=== PATIENT | male | born 1965 | race Caucasian/White ===

== ENCOUNTER 2019-02-28 09:12 | Inpatient (IN) | payer BC ==
[2019-02-28 09:47] LABS: Absolute Lymphocytes (CBC) 1.8 K/uL (0.7-4.9); Absolute Monocytes 0.6 K/uL (0.1-1.3); Absolute Neutrophil 3.7 K/uL (1.8-8.0); Basophils % 0.8 % (0-1.3); Eosinophils % 3.2 % (0-4.4); Hematocrit 49.4 % (39.6-49.0); Lymphocytes % 29.1 % (15.3-44.8); MPV 9.5 fL (7.6-11.3); Monocytes % 8.9 % (3.3-12.3)
[2019-02-28 09:51] LABS: Protime INR 0.96
[2019-02-28 10:10] LABS: ALT/SGPT 35 U/L (12-78); AST/SGOT 30 U/L (15-37); Albumin 4.3 g/dL (3.4-5.0); Alkaline Phosphatase 77 U/L (45-117); BUN Blood Urea Nitrogen 15 mg/dL (7-18); Bicarbonate 25 mmol/L (21-32); Bilirubin Direct < 0.1 mg/dL (0-0.2); Bilirubin Total 0.7 mg/dL (0.2-1.0); Glucose Level 114 mg/dL (74-106); Lipase 114 U/L (73-393); NT PRO-BNP 191 pg/mL (<125); Potassium 3.8 mmol/L (3.5-5.1); Protein, Total 8.2 g/dL (6.4-8.2); Sodium Level 144 mmol/L (136-145)
[2019-02-28] MEDS ORDERED: FOLIC ACID 5 MG/ML VIAL ONE (10:11)
--- NOTE | 2019-02-28 10:11 | RAD REPORT ---
EXAM DESCRIPTION: CT - Head Brain Wo Cont - 02/28/2019 9:51 am CLINICAL HISTORY: Transient alteration of awareness COMPARISON: None. TECHNIQUE: Axial 5 mm thick images of the head were obtained without IV contrast. All CT scans are performed using dose optimization technique as appropriate and may include automated exposure control or mA/KV adjustment according to patient size. FINDINGS: No intracranial hemorrhage, mass, edema or shift of mid-line structures. No acute infarcti on changes seen. No abnormal extra-axial fluid collections. Ventricles are normal. Mastoid air cells and visualized portions of the paranasal sinuses are clear. No acute bony findings. IMPRESSION: Negative non-contrast CT head examination.
[2019-02-28] MEDS ORDERED: NA CHLORIDE 0.9% 1,000 ML ONE (10:12)
--- NOTE | 2019-02-28 10:12 | RAD REPORT ---
EXAM DESCRIPTION: RAD - Chest Single View - 02/28/2019 9:47 am CLINICAL HISTORY: Chest pain COMPARISON: February 2017 TECHNIQUE: AP portable chest image was obtained 0936 hour . FINDINGS: Lungs are clear. Cardiac silhouette is enlarged and increased from the comparison. No vasc ular engorgement or other findings of acute failure/ volume overload. No measurable pleural effusion and no pneumothorax. No acute bony abnormality seen. No acute aortic findings suspected. IMPRESSION: No acute lung parenchymal process. Cardiomegaly increased from comparison. No acute failure or volume overload findings.
--- NOTE | 2019-02-28 11:07 | ER ---
Nurse's Notes [facility] Name: Balbina López Age: 53 yrs Sex: Male : 1965 Arrival Date: 02/28/2019 Time: 09:13 Bed 6 Private MD: Diagnosis: Angina pectoris;Chest pain, unspecified;Essential (primary) hypertension Presentation: 02/28 09:15 Presenting complaint: Patient states: I dont remember events from this morning, I feel sg like i just woke up and I didn't recognize where I am states: He started complaining of chest pain this morning, said it was getting worse so I brought him here to get checked out. Transition of care: patient was not received from another setting of care. Onset of symptoms was February 28, 2019. Risk Assessment: Do you want to hurt yourself or someone else? Patient reports no desire to harm self or others. Initial Sepsis Screen: Does the patient meet any 2 criteria? No. Patient's initial sepsis screen is negative. Does the patient have a suspected source of infection? No. Patient's initial sepsis screen is negative. Note pt asking what happened this morning and reports he doesn't remember leaving the house or remember being driven to the ER, notified. Care prior to arrival: None. 09:15 Method Of Arrival: Wheelchair sg 09:15 Acuity: CHIKA 2 sg Historical: - Allergies: : No Known Allergies; sg - Home Meds: :29 atenolol 100 mg Oral tab 1 tab once daily [Active]; Cialis 20 mg Oral tab 1 tab once sg daily [Active]; - PMHx: 09:29 Hyperlipidemia; Hypertension; sg - PSHx: 10:22 Cholecystectomy; sg - Immunization history:: Adult Immunizations up to date. - Social history:: Smoking status: Patient/guardian denies using tobacco. - Ebola Screening: : Patient negative for fever greater than or equal to 101.5 degrees Fahrenheit, and additional compatible Ebola Virus Disease symptoms Patient denies exposure to infectious person Patient denies travel to an Ebola-affected area in the 21 days before illness onset No symptoms or risks identified at this time. - Family history:: not pertinent. Screenin:29 Abuse screen: Denies threats or abuse. Denies injuries from another. Nutritional sg screening: No deficits noted. Tuberculosis screening: No symptoms or risk factors identified. Never had TB. VAN Screening: Arm Drift: Patient shows no arm weakness. Patient is VAN negative. Visual Disturbance: No visual disturbance noted. Aphasia: No aphasia noted. Neglect: No neglect noted. Fall Risk None identified. Assessment: 09:25 General: Appears in no apparent distress. comfortable, well groomed, well developed, sg well nourished, Behavior is calm, cooperative, appropriate for age. Pain: Complains of pain in chest Pain does not radiate. Quality of pain is described as aching, pressure. Neuro: Level of Consciousness is awake, obeys commands, confused, Oriented to person, time, Bale Tie Machine Operator are equal bilaterally Moves all extremities. Full function Gait is steady, Speech is normal, Facial symmetry appears normal. Cardiovascular: Capillary refill is brisk in bilateral fingers Patient's skin is warm and dry. Chest pain is described as mild, quality is clutching, pressure, is located in anterior chest wall. Respiratory: Airway is patent Respiratory effort is even, unlabored, Respiratory pattern is regular, symmetrical. GI: Abdomen is round non-distended, Reports normal bowel habits, tolerance of fluids, tolerance of food. : No signs and/or symptoms were reported regarding the genitourinary system. EENT: No signs and/or symptoms were reported regarding the EENT system. Derm: Skin is pink, warm \T\ dry. Musculoskeletal: No signs and/or symptoms reported regarding the musculoskeletal system. 09:36 Reassessment: at bedside at this time. sg 11:13 Reassessment: Patient appears in no apparent distress at this time. at bedside sg evaluating pt at this time. Vital Signs: 09:30 BP 192 / 112; Pulse 66; Resp 12; Temp 98.2; Pulse Ox 98% on R/A; Pain 6/10; sg 10:35 BP 168 / 100; Pulse 64 MON; Resp 15; Pulse Ox 98% on R/A; sg 11:16 Weight 93.44 kg (M); sg 11:55 BP 168 / 113; Pulse 56; Resp 19; Pulse Ox 98% on R/A; sg 12:25 BP 188 / 111; Pulse 59 MON; Resp 17; Pulse Ox 99% on R/A; sg 13:20 BP 165 / 112; Pulse 57; Resp 19; Pulse Ox 98% on R/A; sg 13:32 BP 147 / 92; Pulse 62; Resp 17; Temp 98.2; Pulse Ox 100% on R/A; sg Vitals: 09:35 Cardiac Rhythm Assessment Sinus flex. sg NIH Stroke Scale Scores: 09:29 NIHSS Score: 0 ED Course: 09:13 Patient arrived in ED. as 09:14 Benjamin Tineo MD is Attending Physician. thais 09:20 EKG done, by ED staff, reviewed by Benjamin Tineo MD. sg 09:25 Alfredo Lundberg, RN is Primary Nurse. sg 09:26 Inserted saline lock: 20 gauge in right antecubital area, using aseptic technique. 3 Blood collected. 09:28 Triage completed. sg 09:28 Arm band placed on. sg 09:32 Patient maintains SpO2 saturation greater than 95% on room air. sg 09:34 Initial lab(s) drawn, by me, sent to lab. dh3 09:[address] kw1 09:47 XRAY Chest (1 view) In Process Unspecified. EDMS 09:50 CT completed. Patient tolerated procedure well. Patient moved back from CT. bq 09:52 CT Head Brain wo Cont In Process Unspecified. EDMS 11:06 Haroldo García MD is Hospitalizing Provider. thais 13:30 No provider procedures requiring assistance completed. Repeat lab(s) drawn. by me. sg 13:33 Patient has correct armband on for positive identification. Bed in low position. Call sg light in reach. Side rails up X2. grommet machine operator on. Pulse ox on. NIBP on. Warm blanket given. Head of bed elevated. 13:34 Repeat lab(s) drawn. by me, sent to lab. dh3 13:35 Patient admitted, IV remains in place. intact, No redness/swelling at site. Pressure sg dressing applied. Administered Medications: 10:00 Drug: foLIC Acid 1 mg Route: IVPB; Site: right antecubital; sg 10:00 Drug: NS 0.9% 1000 ml Route: IV; Rate: 1 bolus; Site: right antecubital; 13:00 Follow up: Response: No adverse reaction; IV Status: Completed infusion; IV Intake: sg 1000ml 11:39 Drug: Aspirin Chewable Tablet 324 mg Route: PO; sg 13:00 Follow up: Response: No adverse reaction sg 11:39 Not Given (Physician Discretion): Lopressor 25 mg PO once sg 11:39 Drug: Lovenox 1 mg/kg Route: Sub-Q; Site: right lower abdomen; sg 13:00 Follow up: Response: No adverse reaction sg 11:39 Drug: PlaVIX 300 mg Route: PO; sg 19:28 Follow up: Response: No adverse reaction sg 11:39 Drug: Pepcid 20 mg Route: IVP; Site: right antecubital; sg 13:00 Follow up: Response: No adverse reaction sg 11:40 Drug: Lisinopril 10 mg Route: PO; sg 13:00 Follow up: Response: No adverse reaction; Blood pressure is lowered sg Point of Care Testing: Blood Glucose: 09:33 Blood Glucose: 111 mg/dL; sg Ranges: Intake: 13:00 IV: 1000ml; Total: 1000ml. sg Outcome: 11:06 Decision to Hospitalize by Provider. thais 14:06 Admitted to Tele accompanied by tech, via wheelchair, room 211, with oxygen, with sg chart, Report called to Emilee HOOVER 14:06 Condition: stable 14:06 Instructed on the need for admit, safety practices, Demonstrated understanding of instructions. 14:09 Patient left the ED. sg NIH Stroke Scale - NIH Stroke Score Date: 02/28/2019 Time: 09:29 Total Score = 0 1a. Level of Consciousness (LOC) - 0(Alert) 1b. Level of Consciousness (LOC) (Year \T\ Age) - 0(Both) 1c. LOC Commands (Open \T\ Closes Eyes/Industrial Relations Counselor) - 0(Both) 2. Best Gaze (Lateral Gaze Paresis) - 0(Normal) 3. Visual Field Loss - 0(No visual loss) 4. Facial Palsy - 0(Normal) 5a. Left Arm: Motor (10-second hold) - 0(No drift) 5b. Right Arm: Motor (10-second hold) - 0(No drift) 6a. Left Leg: Motor (5-second hold - always test supine) - 0(No drift) 6b. Right Leg: Motor (5-second hold - always test supine) - 0(No drift) 7. Limb Ataxia (finger/nose \T\ heel/rodríguez - test with eyes open) - 0(Absent) 8. Sensory Loss (pinprick arms/legs/face) - 0(Normal) 9. Best Language: Aphasia (description/naming/reading) - 0(No aphasia) 10. Dysarthria (speech clarity - read or repeat words) - 0(Normal) 11. Extinction and Inattention (visual/tactile/auditory/spatial/personal) - 0(No abnormality) Initials: Signatures: Dispatcher [employer] Alfredo Valera RN RN Benjamin Tineo MD MD cha Quilty, Betty bq Martinez, Amelia as Herrera, De[facility] Roseanne Carranza 1 Corrections: (The following items were deleted from the chart) 09:34 09:30 BP 192 / 112; Pulse 66bpm; Resp 12bpm; Pulse Ox 98% RA; Temp 97.2F; 97.52 sg kg; Pain 6/10; sg 10:22 09:29 PSHx: None; sg sg 13:33 09:30 BP 192 / 112; Pulse 66bpm; Resp 12bpm; Pulse Ox 98% RA; Temp 98.2F; 97.52 sg kg; Pain 6/10; sg
--- NOTE | 2019-02-28 11:07 | EDPHYS ---
Physician Documentation [facility] Name: Balbina López Age: 53 yrs Sex: Male : 1965 Arrival Date: 02/28/2019 Time: 09:13 Bed 6 Private MD: KATHLEEN Physician Benjamin Tineo HPI: 02/28 09:39 This 53 yrs old Male presents to ER via Wheelchair with complaints of Chest thais Pain, Confusion. 09:39 The patient or guardian reports chest pain that is located primarily in the anterior [facility] chest wall. Onset: this morning. The pain does not radiate. Associated signs and symptoms: The patient has no apparent associated signs or symptoms. The chest pain is described as a pressure. Modifying factors: The symptoms are alleviated by nothing. the symptoms are aggravated by nothing. Severity of pain: At its worst the pain was mild in the emergency department the pain is unchanged. The patient has not experienced similar symptoms in the past. Historical: - Allergies: 09:29 No Known Allergies; sg - Home Meds: 09:29 atenolol 100 mg Oral tab 1 tab once daily [Active]; Cialis 20 mg Oral tab 1 tab once sg daily [Active]; - PMHx: 09:29 Hyperlipidemia; Hypertension; sg - PSHx: 10:22 Cholecystectomy; sg - Immunization history:: Adult Immunizations up to date. - Social history:: Smoking status: Patient/guardian denies using tobacco. - Ebola Screening: : Patient negative for fever greater than or equal to 101.5 degrees Fahrenheit, and additional compatible Ebola Virus Disease symptoms Patient denies exposure to infectious person Patient denies travel to an Ebola-affected area in the 21 days before illness onset No symptoms or risks identified at this time. - Family history:: not pertinent. ROS: 09:39 Constitutional: Negative for fever, chills, and weight loss, Eyes: Negative for injury, thais pain, redness, and discharge, ENT: Negative for injury, pain, and discharge, Neck: Negative for injury, pain, and swelling, Respiratory: Negative for shortness of breath, cough, wheezing, and pleuritic chest pain, Abdomen/GI: Negative for abdominal pain, nausea, vomiting, diarrhea, and constipation, Back: Negative for injury and pain, : Negative for injury, bleeding, discharge, and swelling, MS/Extremity: Negative for injury and deformity, Skin: Negative for injury, rash, and discoloration, Neuro: Negative for headache, weakness, numbness, tingling, and seizure, Psych: Negative for depression, anxiety, suicide ideation, homicidal ideation, and hallucinations, Allergy/Immunology: Negative for hives, rash, and allergies, Endocrine: Negative for neck swelling, polydipsia, polyuria, polyphagia, and marked weight changes, Hematologic/Lymphatic: Negative for swollen nodes, abnormal bleeding, and unusual bruising. 09:39 Cardiovascular: Positive for chest pain. Exam: 09:39 Constitutional: This is a well developed, well nourished patient who is awake, alert, thais and in no acute distress. Head/Face: Normocephalic, atraumatic. Eyes: Pupils equal round and reactive to light, extra-ocular motions intact. Lids and lashes normal. Conjunctiva and sclera are non-icteric and not injected. Cornea within normal limits. Periorbital areas with no swelling, redness, or edema. ENT: Nares patent. No nasal discharge, no septal abnormalities noted. Tympanic membranes are normal and external auditory canals are clear. Oropharynx with no redness, swelling, or masses, exudates, or evidence of obstruction, uvula midline. Mucous membranes moist. Neck: Trachea midline, no thyromegaly or masses palpated, and no cervical lymphadenopathy. Supple, full range of motion without nuchal rigidity, or vertebral point tenderness. No Meningismus. Chest/axilla: Normal chest wall appearance and motion. Nontender with no deformity. No lesions are appreciated. Cardiovascular: Regular rate and rhythm with a normal S1 and S2. No gallops, murmurs, or rubs. Normal PMI, no JVD. No pulse deficits. Respiratory: Lungs have equal breath sounds bilaterally, clear to auscultation and percussion. No rales, rhonchi or wheezes noted. No increased work of breathing, no retractions or nasal flaring. Abdomen/GI: Soft, non-tender, with normal bowel sounds. No distension or tympany. No guarding or rebound. No evidence of tenderness throughout. Back: No spinal tenderness. No costovertebral tenderness. Full range of motion. Male : Normal genitalia with no discharge or lesions. Skin: Warm, dry with normal turgor. Normal color with no rashes, no lesions, and no evidence of cellulitis. MS/ Extremity: Pulses equal, no cyanosis. Neurovascular intact. Full, normal range of motion. Neuro: Awake and alert, GCS 15, oriented to person, place, time, and situation. Cranial nerves II-XII grossly intact. Motor strength 5/5 in all extremities. Sensory grossly intact. Cerebellar exam normal. Normal gait. Psych: Awake, alert, with orientation to person, place and time. Behavior, mood, and affect are within normal limits. 09:39 Neuro: Orientation: to person, place, time, Not oriented to situation. Vital Signs: 09:30 BP 192 / 112; Pulse 66; Resp 12; Temp 98.2; Pulse Ox 98% on R/A; Pain 6/10; sg 10:35 BP 168 / 100; Pulse 64 MON; Resp 15; Pulse Ox 98% on R/A; sg 11:16 Weight 93.44 kg (M); sg 11:55 BP 168 / 113; Pulse 56; Resp 19; Pulse Ox 98% on R/A; sg 12:25 BP 188 / 111; Pulse 59 MON; Resp 17; Pulse Ox 99% on R/A; sg 13:20 BP 165 / 112; Pulse 57; Resp 19; Pulse Ox 98% on R/A; sg 13:32 BP 147 / 92; Pulse 62; Resp 17; Temp 98.2; Pulse Ox 100% on R/A; sg NIH Stroke Scale Scores: 09:29 NIHSS Score: 0 sg MDM: 09:14 Patient medically screened. [facility] 09:39 Data reviewed: vital signs, nurses notes, lab test result(s), EKG, radiologic studies, [facility] CT scan, plain films. 02/28 09:18 Order name: Basic Metabolic Panel; Complete Time: 10:50 [facility] 02/28 09:18 Order name: CBC with Diff; Complete Time: 10:10 [facility] 02/28 09:18 Order name: LFT's; Complete Time: 10:50 [facility] 02/28 09:18 Order name: Magnesium; Complete Time: 10:50 [facility] 02/28 09:18 Order name: NT PRO-BNP; Complete Time: 10:50 [facility] 02/28 09:18 Order name: PT-INR; Complete Time: 10:10 [facility] 02/28 09:18 Order name: Troponin (emerg Dept Use Only); Complete Time: 10:50 [facility] 02/28 09:18 Order name: XRAY Chest (1 view); Complete Time: 10:50 [facility] 02/28 09:18 Order name: Lipase; Complete Time: 10:50 [facility] 02/28 09:34 Order name: Glucose, Ancillary Testing; Complete Time: 10:10 [facility] 02/28 11:07 Order name: Lipid Profile [facility] 02/28 11:20 Order name: Urine Dipstick--Ancillary (enter results) ut 02/28 13:31 Order name: Troponin I 02/28 13:57 Order name: Urine Dipstick-Ancillary [facility] 02/28 09:18 Order name: EKG; Complete Time: 09:19 [facility] 02/28 09:18 Order name: Cardiac monitoring; Complete Time: 09:31 [facility] 02/28 09:18 Order name: EKG - Nurse/Tech; Complete Time: 09:31 [facility] 02/28 09:18 Order name: IV Saline Lock; Complete Time: 09:31 [facility] 02/28 09:18 Order name: Labs collected and sent; Complete Time: 09:33 [facility] 02/28 09:39 Order name: CT Head Brain wo Cont; Complete Time: 10:50 [facility] 02/28 11:14 Order name: CONS Physician Consult [facility] 02/28 12:45 Order name: Diet Heart Healthy; Complete Time: 12:45 [facility] 02/28 09:18 Order name: O2 Per Protocol; Complete Time: 09:33 [facility] 02/28 09:18 Order name: O2 Sat Monitoring; Complete Time: 09:33 [facility] Administered Medications: 10:00 Drug: foLIC Acid 1 mg Route: IVPB; Site: right antecubital; sg 10:00 Drug: NS 0.9% 1000 ml Route: IV; Rate: 1 bolus; Site: right antecubital; sg 13:00 Follow up: Response: No adverse reaction; IV Status: Completed infusion; IV Intake: sg 1000ml 11:39 Drug: Aspirin Chewable Tablet 324 mg Route: PO; sg 13:00 Follow up: Response: No adverse reaction sg 11:39 Not Given (Physician Discretion): Lopressor 25 mg PO once sg 11:39 Drug: Lovenox 1 mg/kg Route: Sub-Q; Site: right lower abdomen; sg 13:00 Follow up: Response: No adverse reaction sg 11:39 Drug: PlaVIX 300 mg Route: PO; sg 19:28 Follow up: Response: No adverse reaction sg 11:39 Drug: Pepcid 20 mg Route: IVP; Site: right antecubital; sg 13:00 Follow up: Response: No adverse reaction sg 11:40 Drug: Lisinopril 10 mg Route: PO; sg 13:00 Follow up: Response: No adverse reaction; Blood pressure is lowered sg Point of Care Testing: Blood Glucose: 09:33 Blood Glucose: 111 mg/dL; sg Ranges: Critical Glucose Levels:Adult <50 mg/dl or >400 mg/dl <40 mg/dl or >180 mg/dl Disposition: 02/28/19 11:06 Hospitalization ordered by Haroldo García for Inpatient Admission. Preliminary diagnosis are Angina pectoris, Chest pain, unspecified, Essential (primary) hypertension. - Bed requested for Telemetry/MedSurg (Inpatient). - Status is Inpatient Admission. sg - Condition is Fair. - Problem is new. - Symptoms have improved. UTI on Admission? No NIH Stroke Scale - NIH Stroke Score Date: 02/28/2019 Time: 09:29 Total Score = 0 1a. Level of Consciousness (LOC) - 0(Alert) 1b. Level of Consciousness (LOC) (Year \T\ Age) - 0(Both) 1c. LOC Commands (Open \T\ Closes Eyes/Block Breaker Operator) - 0(Both) 2. Best Gaze (Lateral Gaze Paresis) - 0(Normal) 3. Visual Field Loss - 0(No visual loss) 4. Facial Palsy - 0(Normal) 5a. Left Arm: Motor (10-second hold) - 0(No drift) 5b. Right Arm: Motor (10-second hold) - 0(No drift) 6a. Left Leg: Motor (5-second hold - always test supine) - 0(No drift) 6b. Right Leg: Motor (5-second hold - always test supine) - 0(No drift) 7. Limb Ataxia (finger/nose \T\ heel/rodríguez - test with eyes open) - 0(Absent) 8. Sensory Loss (pinprick arms/legs/face) - 0(Normal) 9. Best Language: Aphasia (description/naming/reading) - 0(No aphasia) 10. Dysarthria (speech clarity - read or repeat words) - 0(Normal) 11. Extinction and Inattention (visual/tactile/auditory/spatial/personal) - 0(No abnormality) Initials: sg Signatures: Dispatcher [employer] EDAlfredo De León, RN RN Benjamin Musa MD MD cha Fitzgerald, Diane RN RN df Corrections: (The following items were deleted from the chart) 10:22 09:29 PSHx: None; sg sg 13:27 11:06 Hospitalization Ordered by Haroldo García MD for Inpatient Admission. df Preliminary diagnosis is Angina pectoris; Chest pain, unspecified; Essential (primary) hypertension. Bed requested for Telemetry/MedSurg (Inpatient). Status is Inpatient Admission. Condition is Fair. Problem is new. Symptoms have improved. UTI on Admission? No. thais 14:09 13:27 02/28/2019 11:06 Hospitalization Ordered by Haroldo García MD for Inpatient sg Admission. Preliminary diagnosis is Angina pectoris; Chest pain, unspecified; Essential (primary) hypertension. Bed requested for Telemetry/MedSurg (Inpatient). Status is Inpatient Admission. Condition is Fair. Problem is new. Symptoms have improved. UTI on Admission? No. df
[2019-02-28] MEDS ORDERED: ASPIRIN 81 MG CHEWABLE TABLET ONE (11:09)
[2019-02-28] MEDS ORDERED: METOPROLOL TAR 25 MG TAB ONE (11:10)
[2019-02-28] MEDS ORDERED: CLOPIDOGREL 75 MG TABLET ONE (11:10)
[2019-02-28] MEDS ORDERED: ENOXAPARIN 100 MG/ML SYR SQ ONE (11:10)
[2019-02-28] MEDS ORDERED: FAMOTIDINE 20 MG/2 ML VIAL IV ONE (11:10)
[2019-02-28] MEDS ORDERED: HYDRALAZINE HCL 20 MG/ML VIAL IV PRN (11:41)
--- NOTE | 2019-02-28 11:48 | P.HP ---
Certification for Inpatient Patient admitted to: Observation With expected LOS: <2 Midnights Patient will require the following post-hospital care: None Practitioner: I am a practitioner with admitting privileges, knowledge of patient current condition, hospital course, and medical plan of care. Services: Services provided to patient in accordance with Admission requirements found in Title 42 Section 412.3 of the Code of Federal Regulations Patient History Date of Service: 02/28/19 Primary Care Provider: Magaly Gaspar Reason for admission: Unstable angina History of Present Illness: Patient is an office patient of Saad Gaspar. He has a history of htn, hyperlipidemia and stage 1 ckd. He had an episode of sqeezing substernal chestpain. Over the lower sternum. States 05/05. Lasted for a few minutes. He called his girlfriend and was brought here. Was found to be htn. States he takes a low dose asa daily. Yesterday was the last time. He has been having this pain for the past few months. States it was never this intense. Usually has this when he climbs a flight of steps(was sitting still when it happened this morning). States that the pain has been happening more frequently and with less exertion recently. Relieved by Deep breaths. The patient did not seem to try antacids. Usually his pain is resolved with rest. Allergies No Known Allergies Allergy (Verified 03/07/17 08:12) Home Medications: Losartan Potassium [Cozaar*] 50 mg PO DAILY #30 tablet 02/17/17 Tadalafil [Cialis] 20 mg PO DAILY 03/07/17 - Past Medical/Surgical History Diabetic: No -: Hypertension -: Hyperlipidemia -: Nephrolithiasis -: Liver cysts -: Cholelithiasis -: Left ureter stent placement Psychosocial/ Personal History: Patient is single, he has 6 children. He works as a tool maintenance technician for a local [employer] - Family History Father -: Hypertension - Social History Alcohol use: No CD- Drugs: No Caffeine use: No Review of Systems 10-point ROS is otherwise unremarkable Cardiovascular: Chest Pain (on exertion) Physical Examination - Physical Exam General: Alert, In no apparent distress HEENT: Atraumatic, PERRLA, Mucous membr. moist/pink, EOMI, Sclerae nonicteric Neck: Supple, 2+ carotid pulse no bruit, No LAD, Without JVD or thyroid abnormality Respiratory: Clear to auscultation bilaterally, Normal air movement Cardiovascular: Regular rate/rhythm, Normal S1 S2 Gastrointestinal: Normal bowel sounds, No tenderness Musculoskeletal: No tenderness Integumentary: No rashes Neurological: Normal gait, Normal speech, Normal strength at 5/5 x4 extr, Normal tone, Normal affect Lymphatics: No axilla or inguinal lymphadenopathy - Studies Laboratory Data (last 24 hrs) 02/28/19 09:26: PT 11.3, INR 0.96 02/28/19 09:26: WBC 6.4, Hgb 16.9, Hct 49.4 H, Plt Count 318 02/28/19 09:26: Sodium 144, Potassium 3.8, BUN 15, Creatinine 1.42 H, Glucose 114 H, Magnesium 2.0, Total Bilirubin 0.7, AST 30, ALT 35, Alkaline Phosphatase 77, Lipase 114 Assessment and Plan - Problems (Diagnosis) (1) Unstable angina Current Visit: Yes Status: Acute Plan: normal Ekg and mild elevation of the troponin. However his history is worrisome. Considering that he has worsening of exercise tolerance. Would be prudent to put him in observation and have him seen by Cardiollogy. Especially considering that he had pain at rest this morning (2) Acute on chronic renal failure Current Visit: Yes Status: Acute Plan: Most likely prerenal. Will start him on fluids, monitor his creatine. No need for a renal consult at this time. His baseline creatine seems to be 1.06 is at 1.4 this morning Qualifiers: Acute renal failure type: unspecified Chronic kidney disease stage: stage 2 (mild) Qualified Code(s): N17.9 - Acute kidney failure, unspecified; N18.2 - Chronic kidney disease, stage 2 (mild) (3) Hyperlipidemia Onset Date: 02/17/17 Current Visit: No Status: Chronic Plan: Not on a statin. Will need to check the office notes on Friday. Will consider a statin in this patient. We can do an out patient lipid profile. Qualifiers: Hyperlipidemia type: unspecified Qualified Code(s): E78.5 - Hyperlipidemia , unspecified (4) Hypertension Onset Date: 02/17/17 Current Visit: No Status: Chronic Plan: restart his losartan Qualifiers: Hypertension type: essential hypertension Qualified Code(s): I10 - Essential (primary) hypertension Discharge Plan: Home Plan to discharge in: 24 Hours - Advance Directives Does patient have a Living Will: No Does patient have a Durable POA for Healthcare: No - Code Status/Comfort Care Code Status Assessed: No Code Status: Full Code Physician Review: Patient Assessed, Agree with Above Assessment and Plan Critical Care: No Time Spent Managing Pts Care (In Minutes): 40
[2019-02-28] MEDS ORDERED: LISINOPRIL 20 MG TAB ONE (11:51)
[2019-02-28] MEDS ORDERED: LISINOPRIL 10 MG TAB ONE (11:54)
[2019-02-28 13:57] LABS: Urine Blood NEGATIVE (NEG); Urine Glucose NEGATIVE (NEG); Urine Protein NEGATIVE (NEG)
[2019-02-28] MEDS ORDERED: MORPHINE 4 MG/ML SYR IV PRN (14:05)
[2019-02-28] MEDS ORDERED: ONDANSETRON 4 MG/2 ML VIAL IV PRN (14:05)
[2019-02-28 14:40] VITALS: BMI 29.5
[2019-02-28] MEDS: NA CHLORIDE 0.9% 1,000 ML IV SCH (15:32)
[2019-02-28] MEDS: METOPROLOL TAR 25 MG TAB PO SCH (15:32)
[2019-02-28] MEDS ORDERED: ENOXAPARIN 40 MG/0.4 ML SQ SCH (17:00)
[2019-02-28] MEDS: ACETAMINOPHEN 325 MG TABLET PO PRN (18:49)
[2019-02-28] MEDS: FAMOTIDINE 20 MG/2 ML VIAL IV SCH (20:44)
[2019-02-28] MEDS ORDERED: ENOXAPARIN 100 MG/ML SYR SQ SCH (21:00)
--- NOTE | 2019-02-28 21:01 | EKG ---
Test Date: 2019-02-28 Test Time: 09:20:45 Life Agent: SWG MEASUREMENT RESULTS: Intervals: Rate: 74 CA: 158 QRSD: 90 QT: 412 QTc: 457 [place]: P: 27 CA: 158 QRS: 60 T: 63 INTERPRETIVE STATEMENTS: Normal sinus rhythm Nonspecific ST abnormality Abnormal ECG Compared to ECG 03/07/2017 04:39:23 ST (T wave) deviation now present Left ventricular hypertrophy no longer present Electronically Signed On 02-28-19 21:00:44 CDT by Demetri Gunter
[2019-03-01] MEDS: NA CHLORIDE 0.9% 1,000 ML IV SCH ×2 (01:13→09:51)
[2019-03-01] MEDS: METOPROLOL TAR 25 MG TAB PO SCH (06:00)
[2019-03-01 06:11] LABS: Absolute Lymphocytes (CBC) 1.9 K/uL (0.7-4.9); Absolute Monocytes 0.7 K/uL (0.1-1.3); Absolute Neutrophil 5.2 K/uL (1.8-8.0); Basophils % 0.6 % (0-1.3); Eosinophils % 1.3 % (0-4.4); Hematocrit 45.9 % (39.6-49.0); Lymphocytes % 23.8 % (15.3-44.8); MPV 9.3 fL (7.6-11.3); Monocytes % 9.1 % (3.3-12.3); RBC Red Blood Cell Count 4.97 M/uL (4.33-5.43)
[2019-03-01 06:37] LABS: Albumin 3.6 g/dL (3.4-5.0); Bilirubin Total 0.8 mg/dL (0.2-1.0); Potassium 4.1 mmol/L (3.5-5.1); Thyroid Stimulating Hormone 1.33 uIU/mL (0.360-3.740)
[2019-03-01] MEDS ORDERED: PANTOPRAZOLE 40MG TABLET PO SCH (07:30)
[2019-03-01] MEDS ORDERED: LISINOPRIL 10 MG TAB PO SCH (09:00)
[2019-03-01] MEDS: FAMOTIDINE 20 MG/2 ML VIAL IV SCH (09:00)
[2019-03-01] MEDS ORDERED: LOSARTAN POTASSIUM 50 MG TABLET PO SCH (09:00)
[2019-03-01] MEDS ORDERED: ASPIRIN EC 81 MG TAB PO SCH ×3 (09:00)
[2019-03-01] MEDS ORDERED: CLOPIDOGREL 75 MG TABLET PO SCH (09:00)
[2019-03-01] MEDS ORDERED: HEPA 1000U/500MLS 2,000 UNIT/1,000 ML BAG IV ONE (09:02)
[2019-03-01] MEDS ORDERED: MIDAZOLAM HCL 2 MG/2 ML INJ ONE ×2 (09:56→10:10)
[2019-03-01] MEDS ORDERED: ATROPINE SULF 1 MG/10 ML SYR IV ONE (09:56)
[2019-03-01] MEDS ORDERED: FENTANYL CITR 100 MCG/2 ML ONE (09:56)
[2019-03-01] MEDS ORDERED: NA CHLORIDE 0.9% 0 ML ONE (09:56)
[2019-03-01] MEDS ORDERED: HEPARIN 5000 UNIT/ML 1 ML VIAL ONE (09:57)
[2019-03-01] MEDS ORDERED: NITROGLYCERIN/D5W 25 MG/250 ML BTL IV ONE (09:57)
[2019-03-01] MEDS ORDERED: NICARDIPINE HCL 25 MG/10 ML IV ONE (09:57)
--- NOTE | 2019-03-01 10:41 | P.PN ---
Subjective Date of Service: 03/01/19 Primary Care Provider: Magaly Gaspar Chief Complaint: Unstable angina Subjective: New changes (Patient had further increase in his troponins. Was cath has a left main occlusion.) Review of Systems 10-point ROS is otherwise unremarkable (little anxiety/sob yesterday. No other chest pain.) Physical Examination - Vital Signs Temperature: 97.9 F Blood Pressure: 138/79 Pulse: 56 Respirations: 16 Pulse Ox (%): 98 - Physical Exam General: Alert, In no apparent distress HEENT: Atraumatic, PERRLA, EOMI Neck: Supple, JVD not distended Respiratory: Clear to auscultation bilaterally, Normal air movement Cardiovascular: Regular rate/rhythm, Normal S1 S2 Gastrointestinal: Normal bowel sounds, No tenderness Musculoskeletal: No tenderness Integumentary: No rashes Neurological: Normal speech, Normal tone, Normal affect Lymphatics: No axilla or inguinal lymphadenopathy - Studies Laboratory Data (last 24 hrs) 02/28/19 09:26: Triglycerides 150, Cholesterol 243 H, HDL Cholesterol 58, Cholesterol/HDL Ratio 4.19 Assessment & Plan - Problems (Diagnosis) (1) Acute on chronic renal failure Current Visit: Yes Status: Acute Plan: Most likely prerenal. Will start him on fluids, monitor his creatine. No need for a renal consult at this time. His baseline creatine seems to be 1.06 is at 1.4 this morning Qualifiers: Acute renal failure type: unspecified Chronic kidney disease stage: stage 2 (mild) Qualified Code(s): N17.9 - Acute kidney failure, unspecified; N18.2 - Chronic kidney disease, stage 2 (mild) (2) Hyperlipidemia Onset Date: 02/17/17 Current Visit: No Status: Chronic Plan: Not on a statin. Will need to check the office notes on Friday. Will consider a statin in this patient. We can do an out patient lipid profile. Qualifiers: Hyperlipidemia type: unspecified Qualified Code(s): E78.5 - Hyperlipidemia , unspecified (3) Hypertension Onset Date: 02/17/17 Current Visit: No Status: Chronic Plan: restart his losartan Qualifiers: Hypertension type: essential hypertension Qualified Code(s): I10 - Essential (primary) hypertension (4) NSTEMI (non-ST elevated myocardial infarction) Current Visit: Yes Status: Acute Plan: left main occlusion on CATH. Have discussed with Dr. Gunter. Plan to transfer him to Dr. Santos for possible bypass. Physician Review: Patient Assessed, Agree with Above Assessment and Plan Critical Care: No Time Spent Managing Pts Care (In Minutes): 30
--- NOTE | 2019-03-01 12:11 | CON ---
History Of Present Illness: Mr. López has been having shortness of breath and tightness in his chest. A routine stress test within the past year did not show any ischemia. It was not a nuclear stress. He has underlying hypertension. Does not have dyslipidemia, diabetes. Uses no tobacco. Yesterday he was at home and he had a headache and he started having chest pain. He noted his blood pressure is very elevated and his first blood pressure when he arrived in the emergency room was 199/112. He feels better today over the last 6 months. Whenever he exerts himself beyond a certain point, he get s heavy and tight in the chest. Physical Examination: General: 5 feet 9 inch, 200 pounds. Muscular. He does not have centripetal obesity. HEENT: Normal. Lungs: Clear. Cardiac: Normal. Abdomen: Soft. Extremities: Normal. EKG nonspecific ST abnormality. Laboratory Exam: Significant for normal hemoglobin and hematocrit. Elevated troponin, the highest o ne is 1.41. Impression: He has had a non-ST elevation non-Q-wave myocardial infarction and he should have a card iac cath. I have recommended cardiac cath to him and he has agreed to proceed. He seems to understand procedure, its potential benefits, its indications, and risks and he agrees to proceed. NATHANIEL/JAMILAH Voice ID: [id number] Report ID: [id number]
[2019-03-01 12:53] VITALS: O2SAT 98
[2019-03-01] MEDS: ACETAMINOPHEN 325 MG TABLET PO PRN (15:35)
[2019-03-01 17:51] VITALS: BP 174/87; TEMP 97.4
[2019-03-01] MEDS ORDERED: IBUPROFEN 400 MG TAB PO PRN (21:00)
[2019-03-01] MEDS ORDERED: ATORVASTATIN 80 MG TAB PO SCH (21:00)
--- NOTE | 2019-03-01 21:20 | OP ---
Surgeon: Demetri Gunter MD Well Logging Operator Mud Analysis: Senior Linux Unix Engineer: Brenda Ham. Procedure: Left heart catheterization with coronary left ventricular angiography. Indication: Non-ST elevation myocardial infarction. Procedure Findings: The patient's left ventricular ejection fraction is normal. Left ventricular en d-diastolic pressure within normal limits. Upper limit of normal. Mild systolic hypertension. His left main has an 80% stenosis. The LAD, mild stenosis in its proximal and mid section. No stenosis distally. Circumflex free of any significant disease. RCA 90% proximal stenosis. Good target vesse ls distally, and the recommendation is for him to undergo coronary bypass surgery. Procedure In Detail: The patient gave informed consent, brought to the cardiac stucco laborer in a fasting state, sedated with Versed and fentanyl. Prepared and draped in usual sterile fashion. Right radia l approach was used. We anesthetized the skin over the right radial artery. We were able to place a 21-gauge needle into the artery and cannulate the artery with a 0.021 inch diameter guidewire. We t hen placed a 6-Croat[place] Terumo radial sheath, flushed it and gave the radial cocktail consisting of melvin ardipine, heparin, and nitroglycerin. We placed a TIG catheter into the ascending aorta using a Teru mo Glidewire and fluoroscopy. We did angiogram of the right coronary, left coronary, and left ventri cory, all with the same catheter. At the end of the procedure, when the decision was made to send him to surgery, we removed the catheter over a wire to keep it straight. We flushed the sheath, removed and closed the arteriotomy with a TR band. Estimated Blood Loss: 5 cc. Complications: None. Blood Loss: 5 cc. NATHANIEL/JAMILAH Voice ID: [id number] Report ID: [id number]
[2019-03-02] MEDS ORDERED: VALSARTAN 80 MG TAB PO SCH (09:00)
[2019-03-02] MEDS ORDERED: ASPIRIN 81 MG CHEWABLE TABLET PO SCH (09:00)
--- NOTE | 2019-03-02 15:08 | P.DS ---
Admission Date: 02/28/19 Discharge Date: 03/01/19 Primary Care Provider: Magaly Gaspar Disposition: TRANSFER TO [facility] Reason for Admission: Unstable angina - Problems (1) Acute on chronic renal failure Status: Acute Qualifiers: Acute renal failure type: unspecified Chronic kidney disease stage: stage 2 (mild) Qualified Code(s): N17.9 - Acute kidney failure, unspecified; N18.2 - Chronic kidney disease, stage 2 (mild) (2) Hyperlipidemia Onset Date: 02/17/17 Status: Chronic Qualifiers: Hyperlipidemia type: unspecified Qualified Code(s): E78.5 - Hyperlipidemia , unspecified (3) Hypertension Onset Date: 02/17/17 Status: Chronic Qualifiers: Hypertension type: essential hypertension Qualified Code(s): I10 - Essential (primary) hypertension (4) NSTEMI (non-ST elevated myocardial infarction) Status: Acute Brief History of Present Illness: Patient is an office patient of Saad Gaspar. He has a history of htn, hyperlipidemia and stage 1 ckd. He had an episode of sqeezing substernal chestpain. Over the lower sternum. States 05/05. Lasted for a few minutes. He called his girlfriend and was brought here. Was found to be htn. States he takes a low dose asa daily. Yesterday was the last time. He has been having this pain for the past few months. States it was never this intense. Usually has this when he climbs a flight of steps(was sitting still when it happened this morning). States that the pain has been happening more frequently and with less exertion recently. Relieved by Deep breaths. The patient did not seem to try antacids. Usually his pain is resolved with rest. Hospital Course: Patient was admitted for chest pain. His troponins were going up in house. He had a cath with Dr. Gunter. The patient was found to have a left main occlusion. Was transfered to [facility] for possible CABG. We wish him well. Thank you for allowing me to be a part of his care. Vital Signs/Physical Exam: Temp Pulse Resp BP Pulse Ox 97.4 F 52 16 174/87 H 98 03/01/19 16:00 03/01/19 16:00 03/01/19 16:00 03/01/19 16:00 03/01/19 16:00 General: Alert, In no apparent distress HEENT: Atraumatic, PERRLA, EOMI Neck: Supple, JVD not distended Respiratory: Clear to auscultation bilaterally, Normal air movement Cardiovascular: Regular rate/rhythm, Normal S1 S2 Gastrointestinal: Normal bowel sounds, No tenderness Musculoskeletal: No tenderness Integumentary: No rashes Neurological: Normal speech, Normal tone, Normal affect Lymphatics: No axilla or inguinal lymphadenopathy Laboratory Data at Discharge: WBC 8.0 K/uL (4.3-10.9) D 03/01/19 05:50 Hgb 15.6 g/dL (13.6-17.9) 03/01/19 05:50 Hct 45.9 % (39.6-49.0) 03/01/19 05:50 Plt Count 264 K/uL (152-406) 03/01/19 05:50 PT 11.3 SECONDS (9.5-12.5) 02/28/19 09:26 INR 0.96 02/28/19 09:26 Sodium 144 mmol/L (136-145) 03/01/19 05:50 Potassium 4.1 mmol/L (3.5-5.1) 03/01/19 05:50 BUN 14 mg/dL (7-18) 03/01/19 05:50 Creatinine 1.30 mg/dL (0.55-1.3) 03/01/19 05:50 Glucose 89 mg/dL (74-106) 03/01/19 05:50 Magnesium 2.0 mg/dL (1.8-2.4) 02/28/19 09:26 Total Bilirubin 0.8 mg/dL (0.2-1.0) 03/01/19 05:50 AST 111 U/L (15-37) H 03/01/19 05:50 ALT 79 U/L (12-78) H 03/01/19 05:50 Alkaline Phosphatase 73 U/L (45-117) 03/01/19 05:50 Troponin I 0.73 ng/mL (0.0-0.045) H* 03/01/19 07:26 Triglycerides 150 mg/dL (<150) 02/28/19 09:26 Cholesterol 243 mg/dL (<200) H 02/28/19 09:26 HDL Cholesterol 58 mg/dL (40-60) 02/28/19 09:26 Cholesterol/HDL Ratio 4.19 02/28/19 09:26 Lipase 114 U/L (73-393) 02/28/19 09:26 Home Medications: Aspirin Chewable [Aspirin Chewable*] 1 tab PO DAILY 02/28/19 Atenolol 100 mg PO DAILY 02/28/19 Naproxen Sodium [Aleve] 2 tab PO DAILY 02/28/19 Diet: AHA Activity: Ad tamie Physician Review: Patient Assessed, Agree with Above Assessment and Plan Time spent managing pt's care (in minutes): 40
== END 2019-03-01 18:36 | disposition short-term general hospital (02) | DRG 281 ==
LOC: ER 09:12 → ERHOLD 11:11 → 2ND 14:06
PROVIDERS: ADMIT Internal Medicine; ATTEND Internal Medicine
PROC: 4A023N7 Measurement of Cardiac Sampling and Pressure, Left Heart, Percutaneous Approach (ICD-10-PCS; principal; 2019-03-01)
PROC: B2111ZZ Fluoroscopy of Multiple Coronary Arteries using Low Osmolar Contrast (ICD-10-PCS; 2019-03-01)
PROC: B2151ZZ Fluoroscopy of Left Heart using Low Osmolar Contrast (ICD-10-PCS; 2019-03-01)
DX: I21.4 Non-ST elevation (NSTEMI) myocardial infarction (principal); N17.9 Acute kidney failure, unspecified; I25.10 Atherosclerotic heart disease of native coronary artery without angina pectoris; I12.9 Hypertensive chronic kidney disease with stage 1 through stage 4 chronic kidney disease, or unspecified chronic kidney disease; N18.2 Chronic kidney disease, stage 2 (mild); E78.5 Hyperlipidemia, unspecified
CPT/HCPCS: 36415; 70450; 71045; 80048; 80053; 80061; 80076; 81003; 82962; 83690; 83735; 83880; 84443; 84484; 85025; 85610; 93005; 93458; 96361; 96372; 96374; 96375; 99285; C1893; J0360; J0583; J1644; J1650; J2250; J2405; J3010; J7030